=== PATIENT | female | born 1975 | race Caucasian/White ===

== ENCOUNTER 2021-02-23 21:11 | Emergency (ER) | payer BC, SELFPAY ==
--- NOTE | 2021-02-23 21:23 | PC.NURSE ---
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 Not wanting to stay due to amount of people in waiting room. Pt declined triage assessment. Ambulated out w/ steady gait.
== END 2021-02-23 22:11 | disposition left against medical advice (07) ==
DX: Z53.21 Procedure and treatment not carried out due to patient leaving prior to being seen by health care provider (principal)
CPT/HCPCS: 99199

== ENCOUNTER 2021-03-01 15:06 | Emergency (ER) | payer BC, SELFPAY ==
[2021-03-01 15:17] VITALS: BP 150/87; PULSE 73; RESP 16; TEMP 36.3; O2SAT 100
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
== END 2021-03-01 15:38 | disposition home or self-care (01) ==
PROVIDERS: Emergency Provider Nurse Practitioner
DX: T22.212A Burn of second degree of left forearm, initial encounter (principal); T25.221A Burn of second degree of right foot, initial encounter; T22.211A Burn of second degree of right forearm, initial encounter; T23.209A Burn of second degree of unspecified hand, unspecified site, initial encounter; T31.0 Burns involving less than 10% of body surface; X10.2XXA Contact with fats and cooking oils, initial encounter
CPT/HCPCS: 99213; G0463

== ENCOUNTER 2021-10-23 08:07 | Emergency (ER) | payer BC, SELFPAY ==
--- NOTE | 2021-10-23 08:08 | ED.WOUNDLAC ---
HPI - Wound/Laceration General Chief Complaint: Wound/Laceration Stated Complaint: right 2nd digit finger cut Time Seen by Provider: 10/23/21 08:08 Source: patient Mode of arrival: ambulatory Limitations: no limitations History of Present Illness HPI narrative: Ms. Massey is a 45-year-old female patient presenting to the clinic today with complaints of a cut to her right volar base of second finger that occurred yesterday around noon while she was cleaning the house. She reports she tried to glue it shot and this did not work as it kept popping open. States that it bled a lot yesterday but bleeding has stopped at this time. Tetanus unknown. Related Data Allergies Allergy/AdvReac Type Severity Reaction Status Date / Time amoxicillin Allergy Mild Nausea and Verified 10/23/21 08:27 Vomiting Review of Systems Review of Systems: Pertinent positives per HPI. Patient denies any fever, chills, rash, headache, visual changes, dizziness, cough, runny nose, sore throat, shortness of breath, chest pain, palpitations, nausea, vomiting, diarrhea, constipation, abdominal pain, or any urinary issues. [facility] Past Medical History Medical History Abnormal thyroid blood test Abnormal weight gain Acute bacterial sinusitis Acute bronchitis due to other specified organisms Acute cystitis with hematuria Acute midline low back pain with right-sided sciatica Anxiety BMI 31.0-31.9,adult Cervicalgia Crushing injury of right ankle, subsequent encounter Depressed mood Dietary counseling and surveillance (04/03/17) Enlarged lymph node in neck Hematuria History of kidney stones Hypothyroid Left flank pain Lung nodule Other specified hypothyroidism Sleep apnea, unspecified Type A influenza Varicella zoster Vasovagal syncope Surgical History Surgical History Hx of bariatric surgery Hx of hysterectomy Family History Family History Father Family history of lung cancer Mother No problems noted. Social History Social History Second hand tobacco smoke exposure: Yes Alcohol intake: current Substance use: current Substance use type: marijuana Additional living arrangements comments: son Additional occupation/education comments: stay at home mom. Gender identity (if verbalized by the patient): Female Sexual Orientation (if Verbalized by the Patient): Straight or Heterosexual Spiritual care concerns: No Agree to blood products: Yes Comments At the time of my signature, I reviewed and agree with the nursing past medical, surgical, social, and family history. There is no relevant family history pertinent to the patient complaint. Exam Narrative: General: Well-developed, well nourished, in no apparent distress Head: Normocephalic, atraumatic. Cardio: Regular rate and rhythm, s1 and s2 normal, no murmur appreciated. Resp: Clear to auscultation bilaterally, no rhonchi, rales, wheezing or rubs. Integumentary: [place], warm, and dry, 1.2 cm skin avulsion/flap laceration to the volar base of the right second finger. No bleeding, no redness, no drainage. Course Course Emergency Course: Portions of this record may have been created with voice recognition software. Level of Care: Express Care Visit Vital Signs Vital signs: Vital signs reviewed Procedures Laceration Laceration 1: Date: 10/23/21 Site: hand (Right second digit) Side (If applicable): right Size (cm): 1.2 Description: linear Depth: simple, single layer Local Anesthetic: lidocaine 1% Amount of anesthesia used (mL): 1 Pre-repair: wound explored and irrigated ====== Skin Level ====== Skin layer closed with: nylon Size (cm)
[2021-10-23 08:17] VITALS: BP 132/81; PULSE 86; RESP 16; TEMP 36; O2SAT 100
[2021-10-23 08:29] VITALS: BP 132/81; PULSE 86; RESP 16; TEMP 36; O2SAT 100
== END 2021-10-23 08:45 | disposition home or self-care (01) ==
PROVIDERS: Emergency Provider Nurse Practitioner Family; PCP Family Medicine
DX: S61.210A Laceration without foreign body of right index finger without damage to nail, initial encounter (principal); E03.9 Hypothyroidism, unspecified; W45.8XXA Other foreign body or object entering through skin, initial encounter; Y92.009 Unspecified place in unspecified non-institutional (private) residence as the place of occurrence of the external cause
CPT/HCPCS: 12001; 99212; G0463

== ENCOUNTER 2022-06-10 09:24 | Emergency (ER) | payer BC, SELFPAY ==
--- NOTE | ~2022-06-10 | CT_ITS ---
Non-contrast Head CT History: Head injury Technique: Axial non-contrast imaging of the brain was performed. Dose reduction technique was used on this scan by utilizing automated exposure control and iterative reconstruction technique. The dose -length product (DLP) was 605.33 mGy-cm. Findings: There is no evidence of intracranial hemorrhage, mass lesion, or acute infarct. Brain par enchyma appears normal. The ventricles and subarachnoid spaces are normal in size. The calvarium ap pears normal. The visualized paranasal sinuses and mastoid air cells are clear. Impression: No significant abnormality seen. Reviewed, dictated and finalized at [facility]. [employer] OPERATOR Impression: No significant abnormality seen.
--- NOTE | ~2022-06-10 | XR_ITS ---
EXAMINATION: XR chest 2V 06/10/2022 10:10 INDICATION: Syncope PROCEDURE: 2 view chest COMPARISON: 11/02/2016 FINDINGS: The lungs are clear. The cardiomediastinal silhouette is within normal limits. There are no pleural effusions. There is no pneumothorax suspected. IMPRESSION: 1: NO ACUTE CARDIOPULMONARY DISEASE. Reviewed, dictated and finalized at location A. WARE ARCHITECT
[2022-06-10 09:33] VITALS: BP 148/86; PULSE 84; RESP 16; TEMP 37; O2SAT 100
--- NOTE | 2022-06-10 09:40 | ECG_ITS ---
Measurements Intervals Watson Rate: 67 P: 26 MD: 155 QRS: 6 QRSD: 78 T: 30 QT: 402 QTc: 427 Interpretive Statements SINUS RHYTHM NO PREVIOUS ECG AVAILABLE FOR COMPARISON Electronically Signed On 06-10-2022 19:59:17 [employer] DRAFTSPERSON by Rivera Villanueva M.D.
[2022-06-10 09:41] VITALS: O2SAT 100
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
[2022-06-10 09:53] LABS: Basophils Absolute Auto 0.1 K/mm3 (0.0-0.1); Basophils Percent Auto 0.7 % (0.2-1.2); Eosinophils Absolute Auto 0.1 K/mm3 (0-0.3); Eosinophils Percent Auto 0.7 % (0-4.4); Hematocrit 40.5 % (37.0-47.0); Hemoglobin 13.3 g/dL (12.0-15.0); Immature Granulocyte Absolute 0.02 K/mm3 (0.00-0.031); Immature Granulocyte Percent A 0.2 % (0-0.5); Lymphocytes Absolute Auto 2.46 K/mm3 (0.9-3.2); Mean Corpuscular HGB Conc 32.8 g/dl (32-36); Mean Corpuscular Volume 91.2 fl (80-100); Monocytes Absolute Auto 0.5 K/mm3 (0.1-0.6); Monocytes Percent Auto 5.7 % (2.6-8.5); Neutrophils Absolute Auto 5.4 K/mm3 (1.3-6.7); Neutrophils Percent Auto 63.7 % (45.5-73.1); Platelet Count Result 287 k/mm3 (150-375); Red Blood Count 4.44 M/mm3 (4.2-5.4); Red Cell Distribution Width 12.3 % (11.5-14.5); White Blood Count 8.5 K/mm3 (4.5-10.0)
[2022-06-10 10:09] LABS: Alanine Aminotransferase 16 U/L (6-35); Albumin Level 4.7 g/dL (3.5-5.1); Alkaline Phosphatase 80 U/L (38-126); Anion Gap 5 mmol/L (8-16); Aspartate Amino Transferase 22 U/L (14-36); Bilirubin,Total 1.2 mg/dL (0.2-1.3); Blood Urea Nitrogen 12 mg/dL (7-17); Calcium 9.1 mg/dL (8.4-10.2); Carbon Dioxide 31 mmol/L (22-30); Chloride 103 mmol/L (98-107); Estimated CRCL calculation 78 ml/min; Estimated Glomerular Filt Rate > 60; Glucose 105 mg/dL (65-110); Potassium 4.1 mmol/L (3.4-5.0); Sodium 139 mmol/L (137-145)
[2022-06-10 10:25] VITALS: PULSE 63; RESP 19; O2SAT 98
[2022-06-10] MEDS: SODIUM CHLORIDE 0.9% IV 500 ML 999 ML IV CONT (10:37)
[2022-06-10 10:39] LABS: Prothrombin Time 12.9 Seconds (11.1-14.7)
[2022-06-10 10:46] LABS: Add Urine Microscopic? NO; Appearance Urine Clear (Clear); Bilirubin Urine Negative (Negative); Blood Urine Negative (Negative); Color Urine Light Yellow (Yellow); Glucose Urine UA Negative (Negative); Ketones Urine Negative (Negative); Leukocyte Esterase Ur Negative LEU/UL (Negative); Nitrate Urine Negative (Negative); Protein Urine Negative (Negative); Urobilinogen Urine 0.2 mg/dL (<2.0); pH Urine 6.5 (5.0-9.0)
--- NOTE | 2022-06-10 11:14 | PC.NURSE ---
1100 Assumed pt care from Destini Vazquez RN
[2022-06-10 11:17] LABS: D Dimer 0.45 ug/mL (<0.48)
[2022-06-10 11:22] LABS: Troponin I < 0.012 ng/mL (0.000-0.034)
[2022-06-10 12:40] VITALS: BP 128/89; PULSE 55; RESP 16; O2SAT 100
== END 2022-06-10 12:47 | disposition home or self-care (01) ==
PROVIDERS: Emergency Medicine; Emergency Provider Physician Assistant; PCP Family Medicine
DX: R55 Syncope and collapse (principal); G47.30 Sleep apnea, unspecified; Z87.442 Personal history of urinary calculi; Z90.710 Acquired absence of both cervix and uterus
CPT/HCPCS: 36415; 70450; 71046; 80053; 81003; 84443; 84484; 85025; 85380; 85610; 85730; 93005; 96360; 99284; J7040

== ENCOUNTER 2022-10-12 07:47 | Outpatient (CLI) | payer BC, SELFPAY ==
--- NOTE | ~2022-10-12 | XR_ITS ---
XR ankle LT min 3V DATE: 10/12/2022 08:14 INDICATION: Left ankle injury, lateral pain TECHNIQUE: 4 views COMPARISON: None FINDINGS: Prominent distal Achilles tendon calcification,. Plantar and posterior calcaneal enthesopat hy. No fracture or dislocation of the ankle or disruption of the ankle mortise is detected. No periosteal reaction or bone destruction. IMPRESSION: Prominent distal Achilles tendon calcification Plantar and posterior calcaneal enthesopathy Reviewed, dictated and finalized at location A.
--- NOTE | ~2022-10-12 | US_ITS ---
EXAMINATION: US thyroid DATE: 10/12/2022 08:27 INDICATION: Hypothyroidism, unspecified. TECHNIQUE: Multiple ultrasound images of the thyroid were obtained. COMPARISON: None. FINDINGS: The right thyroid lobe measures 4.0 x 1.6 x 1.4 cm. The left thyroid lobe measures 3.2 x 1.4 x 1.2 c m. In the right thyroid lobe, there is a 5 mm solid, isoechoic, wider than tall nodule with ill-defi joe margin without echogenic foci (TI-RADS TR3). In the right thyroid lobe, there is a 4 mm cystic no dule (TR1). IMPRESSION: 1. Small thyroid nodules, likely not clinically significant. No follow-up is needed. Reviewed, dictated and finalized at location A. IMPRESSION: 1. Small thyroid nodules, likely not clinically significant. No follow-up is ne eded.
== END 2022-10-12 07:48 | disposition home or self-care (01) ==
PROVIDERS: PCP Family Medicine; Visit Provider Nurse Practitioner Family
DX: S99.912A Unspecified injury of left ankle, initial encounter (principal); E03.9 Hypothyroidism, unspecified; E04.2 Nontoxic multinodular goiter; M77.32 Calcaneal spur, left foot
CPT/HCPCS: 73610; 76536